=== PATIENT | female | born 1945 | race Caucasian/White ===

== ENCOUNTER → 2016-09-06 | Outpatient (CLI) | payer MEDICARE, BC ==
[~2016-09-06] MED LIST: AMLO10TA62 PO; GLYB-66 PO; LISI-1 PO; SIMV80TA62 PO; SITA1TAB8 PO
== END ==
LOC: WC.BC 09:47
PROVIDERS: ATTEND Family Medicine
DX: N64.4 Mastodynia (principal); N64.59 Other signs and symptoms in breast; N64.89 Other specified disorders of breast
CPT/HCPCS: G0204; G0279

== ENCOUNTER → 2016-09-15 | Outpatient (CLI) | payer MEDICARE, BC ==
--- NOTE | 2016-09-16 08:28 | DI ---
Indication: ITS.REASON: M25.512 Pain in left shoulder PROCEDURE: MRI SHOULDER LEFT W/O CONTRAST: Encounter: Initial Comparison: None Technique: Multiplanar multisequence MR imaging of the left shoulder was performed without contrast. Findings: There is tendinopathy and longitudinal split tear within the long head biceps tendon at the superior aspect of the bicipital groove. Subscapularis tendinopathy or partial tearing as well. Supraspinatus tendon is intact. The infraspinatus and teres minor tendons are intact. No acute fracture. Moderate acromioclavicular degenerative change. Degenerative areas of superior labral tearing. Muscular bulk and signal intensity is within normal limits. Impression: Longitudinal split tear of the long head biceps tendon with subscapularis tendinopathy or partial tearing. .
== END ==
LOC: IMA 16:10
PROVIDERS: ATTEND Orthopaedic Surgery
DX: S46.112A Strain of muscle, fascia and tendon of long head of biceps, left arm, initial encounter (principal); M19.012 Primary osteoarthritis, left shoulder; M24.812 Other specific joint derangements of left shoulder, not elsewhere classified; M75.92 Shoulder lesion, unspecified, left shoulder; M25.512 Pain in left shoulder